=== PATIENT | male | born 1970 | race Caucasian/White ===

== ENCOUNTER 2022-01-15 07:39 | Emergency (ER) | payer OTHER ==
[2022-01-15] MEDS ORDERED: IBUPROFEN800 MG PO (09:19)
[2022-01-15] MEDS ORDERED: PENICILLIN V P250 M1 PO (09:19)
== END 2022-01-15 09:25 | disposition home or self-care (01) ==
LOC: FER 07:39
DX: K04.7 Periapical abscess without sinus (principal); K02.9 Dental caries, unspecified; F17.200 Nicotine dependence, unspecified, uncomplicated; Z28.311 Partially vaccinated for COVID-19
CPT/HCPCS: 99282